=== PATIENT | male | born 1990 | race African-American/Black ===

== ENCOUNTER 2017-04-30 12:28 | Emergency (ER) | payer SELFPAY ==
[2017-04-30 12:30] VITALS: BP 153/74; PULSE 58; RESP 15; TEMP 97.9; O2SAT 99
--- NOTE | 2017-04-30 13:06 | PD ---
HPI Chief Complaint: ENT Complaint Time Seen by Provider: 12:51 Travel History International Travel<30 days: No Contact w/Intl Traveler<30days: No Traveled to known affect area: No History of Present Illness HPI 26-year-old male presents to the ED for evaluation of 2 hour history of 3/10 pain, reduced hearing of the left ear. Onset gradual. No alleviating or exacerbating factors reported. Patient states that he has a history of cerumen impaction. He states that he is normally able to clear this at home with mineral oil but was unable to clear it today and sought treatment. Also endorses using Qtips in an attempt to clear the ear. He has no others complaints. He denies fever, chills, headache, dizziness, cold symptoms. States that he is otherwise healthy, takes no daily medications. [facility] Social History Tobacco Use: No Allergies-Medications (Allergen,Severity, Reaction): Coded Allergies: No Known Allergies (Unverified , 04/30/17) Reported Meds & Prescriptions Reported Meds & Active Scripts Active Cipro Hc Otic Drops (Ciprofloxacin/Hydrocortisone) 0.2-1% Susp 3 Drop LEFT EAR BID 7 Days Review of Systems Except as stated in HPI: all other systems reviewed are Neg Physical Exam Narrative GENERAL: Well-nourished, well-developed male in no acute distress. SKIN: Warm and dry. HEAD: Normocephalic. Atraumatic. EYES: No scleral icterus. No injection or drainage. PERRLA. EOMI. ENT: Left cerumen impaction. Left external canal is edematous, erythematous, irritated. Right tympanic membrane, pearly mabry, no loss of landmarks. Nasal mucosa is moist. Oropharynx without erythema, edema or exudate. NECK: Supple, trachea midline. No JVD or lymphadenopathy. CARDIOVASCULAR: Regular rate and rhythm without murmurs, gallops, or rubs. RESPIRATORY: Breath sounds clear and equal bilaterally. No accessory muscle use. GASTROINTESTINAL: Abdomen soft, non-tender, nondistended. + Bowel sounds MUSCULOSKELETAL: No cyanosis, or edema. Walks with a normal gait. BACK: Nontender without obvious deformity. No CVA tenderness. Data Data Last Documented VS Vital Signs Date Time Temp Pulse Resp B/P (MAP) Pulse Ox O2 Delivery O2 Flow Rate FiO2 04/30/17 14:02 04/30/17 12:30 97.9 58 15 99 Orders Orders Ed Discharge Order (04/30/17 13:54) MDM Medical Decision Making Medical Screen Exam Complete: Yes Emergency Medical Condition: Yes Differential Diagnosis Cerumen impaction versus otitis externa versus otitis media versus other Narrative Course 26-year-old male presents to the ED for evaluation of 2 hour history of 3/10 pain, reduced hearing of the left ear. Patient states that he has a history of cerumen impaction, attempted to relieve it with mineral oil and qtips before arrival. No others complaints. Vitals reviewed. On exam there is a visible cerumen impaction but the external ear canal is very irritated and erythematous. I attempted to flush the cerumen impaction and also to retrieve it with a forcep, neither was successful. Patient is prescribed Cortisporin drops 3 drops in the affected ear twice a day 7 days. He was educated that this is to reduce the inflammation of the external canal to allow the cerumen impaction to be irrigated in the next few days. He is instructed to follow-up with the ear nose and throat doctor in the next few days for reevaluation. If he is unable to make an appointment with an ENT, he is instructed to return to the ED. The patient indicated understanding of instructions and is agreeable with the care plan. He is stable and discharged home. Procedures Procedure Narrative IRRIGATION OF CERUMEN IMPACTION LEFT EAR: The ear was irrigated with a total of 1 L of 50-50 mix peroxide and warm water. Cerumen impaction was visible but unable to be relieved with this treatment. Patient tolerated the procedure well. Diagnosis Primary Impression: Impacted cerumen, left ear Referrals: Sam Gómez MD Ear / Nose / Throat Specialist Patient Instructions: Cerumen Impaction (ED), General Instructions Additional Instructions: Rest, hydrate. Nothing in the ear except the eardrops. Use eardrops 2 times a day as prescribed. Follow up with the ear nose and throat provider, who's information is provided here. Alternately you may return to the ED in 3-4 days for reevaluation. Return to the ED for any urgent or emergent medical condition. Med/Other Pt SpecificInfo: Prescription(s) given Scripts Ciprofloxacin-Hydrocortisone Otic Drops (Cipro Hc Otic Drops) 0.2-1% Susp 3 DROP LEFT EAR BID for Infection for 7 Days, #1 BOTTLE 0 Refills Prov: Tiffanie Leonardo MD 04/30/17 Disposition: 01 DISCHARGE HOME Condition: Stable Jena Turcios Apr 30, 2017 13:06
[2017-04-30] MEDS ORDERED: CIPRHC10A LEFT EAR (13:56)
== END 2017-04-30 14:14 | disposition home or self-care (01) ==
LOC: NEPK 12:28
DX: H61.22 Impacted cerumen, left ear (principal)
CPT/HCPCS: 69210